=== PATIENT | female | born 1965 | race Caucasian/White ===

== ENCOUNTER 2019-03-21 09:46 | Day surgery (SDC) | payer BC, OTHER ==
[~2019-03-21 09:46] MED LIST: LIDOCAINE HCL 1% MPF 30 SOL ONE; PROPOFOL 500 MG/50 ML EMU IV ONE
[2019-03-21 12:31] VITALS: BP 115/71; PULSE 75; RESP 18; TEMP 97.4; O2SAT 96
== END 2019-03-21 12:49 | disposition home or self-care (01) | DRG 951 ==
LOC: SURG 09:46
PROVIDERS: ATTEND Surgery
DX: Z12.11 Encounter for screening for malignant neoplasm of colon (principal)
CPT/HCPCS: J2001; J2704